=== PATIENT | female | born 1970 | race Two or more races ===

== ENCOUNTER 2021-06-29 08:05 | Day surgery (SDC) | payer OTHER ==
[~2021-06-29 08:05] MED LIST: CANDESARTAN CILE8 MG PO
== END 2021-06-29 17:35 | disposition home or self-care (01) ==
LOC: CIR.AMB 08:05
PROVIDERS: ATTEND Colon & Rectal Surgery
DX: K60.0 Acute anal fissure (principal); K64.2 Third degree hemorrhoids; K64.4 Residual hemorrhoidal skin tags; I10 Essential (primary) hypertension; Z91.040 Latex allergy status; Z20.822 Contact with and (suspected) exposure to COVID-19